=== PATIENT | male | born 1995 | race Caucasian/White ===

== ENCOUNTER 2019-10-09 03:28 | Emergency (ER) | payer SELFPAY ==
[~2019-10-09] VITALS: Ht 175.3 cm; Wt 68.0 kg
[2019-10-09 03:33] VITALS: BP 140/86
== END 2019-10-09 05:54 | disposition home or self-care (01) ==
LOC: ER 03:36
DX: L25.9 Unspecified contact dermatitis, unspecified cause (principal)